=== PATIENT | male | born 1985 | race Caucasian/White ===

== ENCOUNTER 2021-11-22 08:24 | Emergency (ER) | payer SELFPAY ==
[~2021-11-22] VITALS: Ht 198.1 cm; Wt 131.4 kg
[~2021-11-22 08:24] MED LIST: CIPRO 500MG TA500 MG PO
[2021-11-22 08:48] VITALS: TEMP 98.1
[2021-11-22] MEDS ORDERED: FLEXERIL 1010 MG/TAB PO (12:58)
[2021-11-22] MEDS ORDERED: NAPROSYN500 MG PO (12:58)
[2021-11-22 13:32] VITALS: BP 149/86; PULSE 83
== END 2021-11-22 13:34 | disposition home or self-care (01) ==
LOC: COL.ER 08:24
DX: S16.1XXA Strain of muscle, fascia and tendon at neck level, initial encounter (principal); F17.210 Nicotine dependence, cigarettes, uncomplicated; Z28.310 Unvaccinated for COVID-19
CPT/HCPCS: J1885